=== PATIENT | female | born 1960 | race African-American/Black ===

== ENCOUNTER → 2019-10-09 | Outpatient (CLI) | payer BC ==
[2019-09-04 17:26] VITALS: BP 151/76
[~2019-10-09] MED LIST: AMLO5TAB10 PO; FAMO40TA4 PO; IOHEXOL 180 MG/ML 10 ML VIAL. ONE; LANS30CA PO; LIPITOR80 MG PO; METF10007 PO; METF500T16 PO; METH4TAB2 PO; MULT-735 PO; POTA20TA4 PO; TRIA1TAB3 PO; methylPREDNISolone ACETATE 40 MG/ML VIAL. ONE; methylPREDNISolone ACETATE 80 MG/ML VIAL. ONE
--- NOTE | 2019-10-09 19:55 | PAIN ---
DATE OF SERVICE: 10/09/2019 CHIEF COMPLAINT: Neck and left upper extremity pain. HISTORY OF PRESENT ILLNESS: This is a 58-year-old female who presents with history of pain in the base of the neck and shoulder since about May 2019. The patient reports it started gradually and increased gradually, not a result of any specific injury or action that she is aware of. She has pain in the base of the shoulder radiating to the anterior neck, anterior collar bone, into the shoulder laterally and anteriorly, into the bicep, into the forearm and into the hand on the left side with numbness and tingling in the thumb and first finger specifically. The patient reports it is constant, becoming more noticeable with tingling and numbness, radiating into the left arm, primarily worse at night, but worse with lifting items, has an aching quality with repetitive motions, using computer or driving a car, raising her hand over her head that is on the left side, any repetitive motions or weight lifting or weightbearing with the left arm. The patient reports she has tried exercising and stretching that has not been significantly successful. She has had epidural injections in the past prior to a cervical laminectomy that she had about 10 years ago. The patient has been taking Tylenol at least 2 before bedtime, which does help her sleep. She is taking 2 in the morning now as well, which helps her get through her working day. The patient reports it awakens her from sleep at least once a night. It does not affect her bowel or bladder control, but does affect her ability to walk at times, using left shoulder and is more painful with abduction of the shoulder as well. The patient rates her disability rating from 0-10, 10 being the worst, is a 5 with family home responsibilities, recreation, occupation, sexual behavior and self care, 9 with life support activities, and 7 with social activities. The patient did have an MRI scan of cervical spine on 09/21/2019 showing C4-C5 small to moderate sized left paracentral disk protrusion versus disk osteophyte complex creating concave flattening of the left anterior thecal sac and possible mild extrinsic compression of the exiting left nerve root. Relatively large right C5-C6 paracervical disk protrusion versus disk osteophyte complex. Also, large right lateral C6-C7 paracervical disk protrusion or osteophyte complex as well. The patient reports no loss of motor function, but significant fatigability with left upper extremity with repetitive motions once again and no symptoms on the right. PAST MEDICAL HISTORY: Significant for: 1. Type 2 diabetes. 2. Hypertension. 3. Hyperlipidemia. 4. Irregular heart rhythm. 5. Thyroid nodule. 6. Gastroesophageal reflux. 7. Irritable bowel syndrome. 8. Arthritis. PAST SURGICAL HISTORY: Previous surgeries include: 1. Carpal tunnel release bilaterally. 2. Left ankle surgery. 3. Trigger finger on the left, fourth finger. 5. Cervical spine laminectomy about 10 years ago. 6. Left salpingo-oophorectomy. 7. Appendectomy. 8. Hysterectomy. 9. Sinus surgeries. CURRENT MEDICATIONS: Include: 1. Lansoprazole. 2. Atorvastatin. 3. Amlodipine. 4. Triamterene. 5. Metformin. 6. Multivitamins. 7. Potassium. ALLERGIES: The patient is allergic to SULFA and PENICILLIN DRUGS. FAMILY HISTORY: Significant for diabetes, hypertension, cancers and high cholesterol. SOCIAL HISTORY: The patient drinks alcohol about 1 glass on special occasions only despite several times a year. Does not smoke. Does not use any illegal, illicit or recreational drugs. She is , lives with her spouse. Has one child living at home. Lives locally in [place], [place]. Works as a local banking project/production manager imaging, mostly in the sitting down position during the day of her working hours. REVIEW OF SYSTEMS: Review of systems is positive for those items mentioned in history of present illness. All systems reviewed and otherwise negative. It is complete, full and well documented on the patient's chart. PHYSICAL EXAMINATION: VITAL SIGNS: The patient's blood pressure is 130/47, pulse 78, respirations 16, temperature is 98.2 degrees Fahrenheit, height is 5 feet 4 inches, weight is 183 pounds. GENERAL: The patient is awake, alert, oriented, appropriate, very pleasant demeanor. HEENT: Head shows normocephalic, atraumatic. Extraocular movements are intact and symmetrical. Oral cavity: Mucous membranes moist and pink. Dentition is intact. NECK: Shows anterior throat supple without palpable lymphadenopathy noted. Swallow reflex is symmetrical. CHEST: Shows normal on inspection. Breath sounds are clear bilaterally. HEART: Shows S1, S2 clear. No murmurs auscultated. ABDOMEN: Soft, nontender, nondistended. No palpable organomegaly is noted. No rebound or guarding demonstrated. BACK: Shows spine grossly in the midline. Normal appearing thoracic kyphosis and lumbar lordotic curvature. Cervical lordotic curvature is slightly flattened with well-healed surgical scarring noted in the posterior aspect. Cervical paraspinous muscle shows symmetrical on inspection, with palpation shows some moderate tenderness diffusely bilaterally going diffusely without significant radiation. The patient shows good rotational motion of the cervical spine both laterally as well as extension and flexion with only some minor tenderness with extension, but not with forward flexion. The patient shows good lateral rotation past 45 degrees, right and left without difficulty. EXTREMITIES: The patient's upper extremities show deep tendon reflexes at 2+ in the biceps and triceps tendons. Motor exam is strong with collection administrator strength rated at 4/5 on the left, 5/5 on the right bicep and tricep flexion and 3-4/5 with bicep flexion on the left and 5/5 on the right secondary to pain mostly on the left side. The patient's shoulder shrug is strong and intact without loss of strength on resistance, again with significant pain reported in the base of the neck and into the left trapezius, lateral and anterior deltoid on the left side. This is true with abduction of shoulder to 90 degrees, again without loss of strength on resistance with significant pain on the left shoulder and base of the neck. Peripheral pulses are 2+ radial. No peripheral edema is noted bilaterally. Upper extremities are warm and dry to touch, equal in color and appearance. SKIN: Shows warm and dry. Good turgor. No edema. No sores, rashes or bruising throughout. IMPRESSION: 1. This is a 58-year-old female with approximately 4-5 month history of pain in the base of the neck, left upper extremity in a radicular fashion. 2. MRI scan of cervical spine as noted. 3. Hypertension. 4. Arthritis. 5. Type 2 diabetes. PLAN: Options were discussed with the patient including conservative medical managements, physical therapies and interventional techniques. She would like to pursue interventional techniques as she has done well with these in the past. We discussed a cervical epidural steroid injection using description as well as anatomical models to describe the procedure. Risks were then discussed including, but not limited to bleeding, infection, possibility of epidural hematoma, subsequent neurological compromise, dural puncture, headaches, spinal cord and/or nerve damage, side effects of steroid medication and poor results regarding pain control. The patient understands and wished to proceed. The patient will return to clinic in approximately 2 weeks for followup. She was counseled as to return appointment, activity level and side effects to be aware of. DIAGNOSES: Cervical radiculopathy with cervical degenerative disk disease and cervical post laminectomy syndrome. PROCEDURE: Cervical epidural steroid injection, translaminar approach C6-C7 level using C-arm fluoroscopic guidance under sterile prep and drape using local anesthetic. MEDICATION INJECTED: A total of 120 mg Depo-Medrol plus 5 mL of preservative-free normal saline and 2 mL of contrast. CONDITION AT DISCHARGE: Stable. The patient tolerated the procedure well, had no complications. SERGEI NETTLES MD DR: HELENA/genevieve JOB#: [id number] / [id number]
== END ==
LOC: PNCL 13:29
PROVIDERS: ATTEND Anesthesiology
DX: M50.123 Cervical disc disorder at C6-C7 level with radiculopathy (principal); M96.1 Postlaminectomy syndrome, not elsewhere classified; I10 Essential (primary) hypertension; E78.00 Pure hypercholesterolemia, unspecified; E11.9 Type 2 diabetes mellitus without complications; K21.9 Gastro-esophageal reflux disease without esophagitis; K58.9 Irritable bowel syndrome, unspecified; Z98.890 Other specified postprocedural states; Z90.710 Acquired absence of both cervix and uterus; Z87.39 Personal history of other diseases of the musculoskeletal system and connective tissue; Z90.721 Acquired absence of ovaries, unilateral; Z88.1 Allergy status to other antibiotic agents; Z88.0 Allergy status to penicillin; Z79.84 Long term (current) use of oral hypoglycemic drugs
CPT/HCPCS: 62321; J1030; J1040; Q9965

== ENCOUNTER → 2019-10-22 | Outpatient (CLI) | payer BC ==
[2019-09-04 17:26] VITALS: BP 151/76
[~2019-10-22] MED LIST changes: -IOHEXOL 180 MG/ML 10 ML VIAL. ONE; -methylPREDNISolone ACETATE 40 MG/ML VIAL. ONE; -methylPREDNISolone ACETATE 80 MG/ML VIAL. ONE
--- NOTE | 2019-10-22 09:38 | PAIN ---
DATE OF SERVICE: 10/22/2019 PROGRESS NOTE FOR PAIN CLINIC DIAGNOSES: Cervical radiculopathy with cervical degenerative disk disease and cervical post-laminectomy syndrome. HISTORY OF PRESENT ILLNESS: The patient is a 58-year-old female who returns for followup status post cervical epidural steroid injection x 1 on 10/09/2019. The patient did very well with this, but the pain has returned in the base of the neck and shoulders, mostly in the left arm and shoulder, arm and bicep, into the forearm as well as into the hand and fingers with numbness and tingling. The patient reports it is aching again in the neck and shoulder. The patient reports it is a 9 on a scale of 10 at its worst over the past week, 8 on average and a 5 at its least and is a 7 today. The patient reports still awaken her from sleep about every 4 hours, worse with repetitive motions, left upper extremity, reaching overhead with her left arm or weightbearing with items and reaching at the same time. The patient reports no new motor or sensory deficits or other complaints, but still significant pain in the left upper extremity and neck. No new motor or sensory deficits, no new changes. PHYSICAL EXAMINATION: VITAL SIGNS: The patient's blood pressure 140/89, pulse 67, respirations 16, temperature 98.3 degrees Fahrenheit, weight is 181 pounds. GENERAL: The patient is awake, alert, oriented, appropriate, very pleasant demeanor. HEENT: Head shows normocephalic, atraumatic. Extraocular movements are intact and symmetrical. Oral cavity: Mucous membranes moist and pink. Dentition is intact. NECK: Shows anterior throat supple without palpable lymphadenopathy noted. Swallow reflex symmetrical. CHEST: Shows normal on inspection. Breath sounds clear to auscultation bilaterally. HEART: Shows S1, S2 clear. ABDOMEN: Obese, soft, nontender, nondistended. BACK: Shows spine grossly in the midline. Cervical paraspinous muscle shows symmetrical on inspection. On palpation shows some moderate tenderness diffusely bilaterally going diffusely without significant radiation. The patient does show good rotational motion of cervical spine with some minor pain with extension, but not with forward flexion, right and left lateral rotations performed past 45 degrees, closer to 90 degrees without significant increase in pain. EXTREMITIES: Upper extremities show deep tendon reflexes 2+ in the biceps and triceps tendon. Motor exam is approximately 4 on a scale of 5 on the left with in school suspension coordinator strength 5/5 on the right, biceps shows about 4 on a scale 5 on the left and 5/5 on the right as well. Peripheral pulses are 2+ radial. No peripheral edema is noted bilaterally. PLAN: Options were discussed with the patient. The patient's old chart was reviewed as her current medication regimen updated. Current review of systems updated today as well. We will hold on injection at this time as the patient is running late to work today and she would like to come back in later this week for a second cervical epidural steroid injection. We will make these arrangements to have her return later this week as scheduled. SERGEI NETTLES MD DR: HELENA/genevieve JOB#: [id number] / [id number]
== END | disposition home or self-care (01) ==
LOC: PNCL 08:57
PROVIDERS: ATTEND Anesthesiology
DX: M50.10 Cervical disc disorder with radiculopathy, unspecified cervical region (principal); M96.1 Postlaminectomy syndrome, not elsewhere classified
CPT/HCPCS: G0463

== ENCOUNTER → 2019-11-23 | Outpatient (CLI) | payer BC ==
[2019-09-04 17:26] VITALS: BP 151/76
[~2019-11-23] MED LIST changes: +IOHEXOL 180 MG/ML 10 ML VIAL. ONE; +methylPREDNISolone ACETATE 40 MG/ML VIAL. ONE; +methylPREDNISolone ACETATE 80 MG/ML VIAL. ONE
--- NOTE | 2019-11-23 09:25 | PAIN ---
DATE OF SERVICE: 11/23/2019 PROGRESS NOTE FOR PAIN CLINIC DIAGNOSES: Cervical radiculopathy with cervical degenerative disk disease and cervical post-laminectomy syndrome. HISTORY OF PRESENT ILLNESS: The patient is a 58-year-old female who returns for followup status post cervical epidural steroid injection x 1 with about a 40% improvement overall. The patient reports still significant pain in the base of neck and left upper extremity. The patient reports it is tingling and aching. We had rescheduled after her last visit as she had some other appointments that day and needed to be fairly active and was working and had to return when she does not have to work later today. She returned today and would like to proceed. The patient reports pain is still in the base of the neck, left upper extremity, anterior biceps, into the forearm, into the hand and wrist as well with tingling, numbness, aching and shooting pain in the left arm with tingling sensation in the hand as well. The patient reports it is on and off and has been disturbing her sleep fairly significantly over the past week or so. The patient rates her pain as a 10 on a scale of 10 at its worse the past week, 8 on average, 5 at its least and is a 5 today. The patient reports no new motor or sensory deficits, no new changes. PHYSICAL EXAMINATION: VITAL SIGNS: The patient's blood pressure is 136/76, pulse 72, respirations are 18, temperature 98.2 degrees Fahrenheit, height is 5 feet 5 inches, weight is 153 pounds. GENERAL: The patient is awake, alert, oriented, appropriate, very pleasant demeanor. HEENT: Shows normocephalic, atraumatic. Extraocular movements are intact and symmetrical. Oral cavity: Mucous membranes moist and pink. Dentition is intact. NECK: Shows anterior throat supple without palpable lymphadenopathy noted. Swallow reflex symmetrical. CHEST: Shows normal on inspection. Breath sounds are clear bilaterally. HEART: Shows S1, S2 clear. No murmurs auscultated. ABDOMEN: Soft, nontender, nondistended. No palpable organomegaly is noted. There is no rebound or guarding demonstrated. BACK: Shows spine grossly in the midline. Slight flattening of cervical lordotic curvature with well-healed surgical scar noted posteriorly. Cervical paraspinous musculature shows symmetrical on inspection, with palpation some moderate tenderness diffusely in the middle and lower distribution of the cervical paraspinous muscles and into the superior medial trapezius, slightly more tender on the left than the right, but present bilaterally, but without asymmetry, without atrophy, and without trigger points. The patient shows good rotational motion of cervical spine, both laterally as well as extension and flexion without significant increase in pain. EXTREMITIES: Upper extremities show deep tendon reflexes 2+ in the biceps, triceps tendons. Motor exam is approximately 4 on a scale of 5 with left roll cleaner strength and 5/5 on the right. Bicep and tricep flexion likewise 4/5 left, 5/5 on the right. Peripheral pulses are 2+ radial. No peripheral edema is noted bilaterally. Options were discussed with the patient. The patient's old chart was reviewed as her current medication regimen updated. Current review of systems updated today as well. We will proceed with a second in a series of cervical epidural steroid injection today with fluoroscopic guidance. Risks were again discussed including, but not limited to bleeding, infection, possibility of epidural hematoma, subsequent neurological compromise, dural puncture, headaches, spinal cord and/or nerve damage, side effects of steroid medication and poor results regarding pain control. The patient understands and wished to proceed. The patient will return to clinic in approximately 2 weeks for followup, was counseled on return appointment, activity level and side effects to be aware of. DIAGNOSES: Cervical radiculopathy with cervical degenerative disk disease and cervical post-laminectomy syndrome. PROCEDURE: Cervical epidural steroid injection, translaminar approach C6-C7 level using C-arm fluoroscopic guidance under sterile prep and drape using local anesthetic. MEDICATION INJECTED: A total of 120 mg Depo-Medrol plus 5 mL of preservative-free normal saline and 2 mL of contrast. CONDITION AT DISCHARGE: Stable. The patient tolerated the procedure well, had no complications. SERGEI NETTLES MD DR: HELENA/genevieve JOB#: [id number] / [id number]
== END | disposition home or self-care (01) ==
LOC: PNCL 07:44
PROVIDERS: ATTEND Anesthesiology
DX: M50.123 Cervical disc disorder at C6-C7 level with radiculopathy (principal); M96.1 Postlaminectomy syndrome, not elsewhere classified; Z98.890 Other specified postprocedural states; Z88.0 Allergy status to penicillin; Z88.1 Allergy status to other antibiotic agents; Z88.8 Allergy status to other drugs, medicaments and biological substances
CPT/HCPCS: 62321; J1030; J1040; Q9965

== ENCOUNTER → 2019-12-07 | Outpatient (CLI) | payer BC ==
[2019-09-04 17:26] VITALS: BP 151/76
[~2019-12-07] MED LIST changes: -IOHEXOL 180 MG/ML 10 ML VIAL. ONE; -methylPREDNISolone ACETATE 40 MG/ML VIAL. ONE; -methylPREDNISolone ACETATE 80 MG/ML VIAL. ONE
--- NOTE | 2019-12-07 08:33 | PAIN ---
DATE OF SERVICE: 12/07/2019 PROGRESS NOTE FOR PAIN CLINIC DIAGNOSIS: Cervical radiculopathy with cervical degenerative disk disease and cervical post-laminectomy syndrome. HISTORY OF PRESENT ILLNESS: The patient is a 58-year-old female, who returns for followup status post cervical epidural steroid injections x 2. The patient reports near 100% improvement for about a week, week and a half to 2 weeks. The patient reports that the pain returns in the base of the neck and the left shoulder and upper extremity. The patient rates it as an 8 on a scale of 10 at its worst over the past week, 5 on an average, 4 at its least and is a 4 today. The patient reports tingling, aching and sharp in the base of the neck and left shoulder, left upper extremity, radiating, worse with activity, repetitive motions, reaching over her head or with weightbearing on the left arm. The patient reports initially she was doing much better, had much better time sleeping, was doing work activities, household activities, traveling with greater ease and comfort for the first 2 weeks and the pain returned, not quite to baseline, but close. The patient reports it is becoming more constant ache, more headaches involved with the pain as well and difficulty sleeping. The patient reports no new motor or sensory deficits, no new bowel or bladder incontinence or other complaints. The patient describes the pain as aching, sharp and tingling in the left arm. PHYSICAL EXAMINATION: VITAL SIGNS: The patient's blood pressure 128/76, pulse 73, respirations 18, temperature 98.3 degrees Fahrenheit, weight is 181 pounds. GENERAL: The patient is awake, alert, oriented, appropriate, is a very pleasant demeanor. HEENT: Shows normocephalic, atraumatic. Extraocular movements are intact and symmetrical. Oral cavity: Mucous membranes moist and pink; dentition is intact. NECK: Shows anterior throat supple. Swallow reflex symmetrical. CHEST: Shows normal on inspection. Breath sounds are clear. No rales, rhonchi or wheezes auscultated. HEART: Shows S1, S2 clear. No murmurs auscultated. ABDOMEN: Soft, nontender and nondistended. No palpable organomegaly is noted. No rebound or guarding demonstrated. BACK: Shows spine grossly in the midline. Cervical paraspinous musculature shows symmetrical on inspection, with palpation shows some moderate tenderness diffusely in the middle and inferior aspect of the cervical paraspinous muscles, but it is symmetrical without evidence of atrophy or hypertrophy, no trigger points, no radiation of pain. The patient has good rotational motion of cervical spine both laterally greater than 45 degrees, closer to 90 degrees, right and left, as well as full extension and full forward flexion without significant increase in pain. EXTREMITIES: Upper extremities show deep tendon reflexes are 2+ in the biceps and triceps tendons. Motor exam is approximately 4 on a scale of 5 on the left with molder helper strength and 5/5 on the right. Peripheral pulses are 2+ radial. No peripheral edema is noted bilaterally. Options were discussed with the patient. The patient's old chart was reviewed as her current medication regimen updated. Current review of systems updated today as well. We will hold on any further injections per the patient's choice. She would like to follow up with her neurosurgeon, Dr. Cameron Soriano, and we will have her follow up with him with recent MRI scan results to be reviewed with the neurosurgeon to see if there may be a surgical alternative. If not, we will return for third cervical epidural steroid injection. SERGEI NETTLES MD DR: HELENA/genevieve JOB#: [id number] / [id number]
== END | disposition home or self-care (01) ==
LOC: PNCL 07:43
PROVIDERS: ATTEND Anesthesiology
DX: M96.1 Postlaminectomy syndrome, not elsewhere classified (principal); M50.10 Cervical disc disorder with radiculopathy, unspecified cervical region
CPT/HCPCS: G0463

== ENCOUNTER 2020-04-26 20:20 | Emergency (ER) | payer BC ==
[~2020-04-26] VITALS: Ht 167.6 cm; Wt 65.0 kg
[~2020-04-26 20:20] MED LIST changes: +AMLO-186 PO; -AMLO5TAB10 PO
[2020-04-26 23:42] LABS: BILIRUBIN,URINE NEGATIVE (NEG); CLARITY,URINE CLEAR; COLOR,URINE YELLOW; NITRITE,URINE NEGATIVE (NEG); PROTEIN,URINE NEGATIVE (NEG-TRACE)
--- NOTE | 2020-04-26 23:52 | PHYS DOC ---
Past Medical History Past Medical History: Diabetes-Type II, High Cholesterol, Hypertension Past Surgical History: Appendectomy, Other Additional Past Surgical Histo: NECK, CARPAL TUNNEL, Smoking Status: Never Smoker Alcohol Use: None General Adult EDM: Chief Complaint: FLANK PAIN HPI: HPI: Patient is a 59 year old female presents with a chief complaint of right flank pain. Patient states flank pains started around 11 AM this morning. Patient states pain has been constant since onset. She states pain radiates from right flank to right abdomen. Patient states she has associated nausea but has not vomited. She denies any urinary issues. She states she has never had similar symptoms in the past. Patient's past surgical history include an appendectomy. Review of Systems: Review of Systems: Constitutional: Denies fever or chills. [] Eyes: Denies change in visual acuity. [] HENT: Denies nasal congestion or sore throat. [] Respiratory: Denies cough or shortness of breath. [] Cardiovascular: Denies chest pain or edema. [] GI: Positive abdominal pain positive nausea no vomiting no diarrhea : Denies dysuria. [] Positive flank pain Musculoskeletal: Denies back pain or joint pain. [] Integument: Denies rash. [] Neurologic: Denies headache, focal weakness or sensory changes. [] Endocrine: Denies polyuria or polydipsia. [] Lymphatic: Denies swollen glands. [] Psychiatric: Denies depression or anxiety. [] Heart Score: Risk Factors: Risk Factors: DM, Current or recent (<one month) smoker, HTN, HLP, family history of CAD, obesity. Risk Scores: Score 0 - 3: 2.5% MACE over next 6 weeks - Discharge Home Score 4 - 6: 20.3% MACE over next 6 weeks - Admit for Clinical Observation Score 7 - 10: 72.7% MACE over next 6 weeks - Early Invasive Strategies Allergies: Allergies: Allergies Coded Allergies Type Severity Reaction Last Updated Verified Penicillins Allergy Intermediate 02/02/18 Yes Sulfa (Sulfonamide Antibiotics) Allergy Intermediate 01/31/18 Yes fluconazole Allergy Intermediate 01/31/18 Yes Physical Exam: PE: Constitutional: Well developed, well nourished, no acute distress, non-toxic appearance. [] HENT: Normocephalic, atraumatic, bilateral external ears normal, oropharynx moist, no oral exudates, nose normal. [] Eyes: PERRLA, EOMI, conjunctiva normal, no discharge. [] Neck: Normal range of motion, no tenderness, supple, no stridor. [] Cardiovascular:Heart rate regular rhythm, no murmur [] Lungs & Thorax: Bilateral breath sounds clear to auscultation [] Abdomen: Bowel sounds normal, soft, no tenderness, no masses, no pulsatile masses. [] Skin: Warm, dry, no erythema, no rash. [] Back: No tenderness, no CVA tenderness. [] Extremities: No tenderness, no cyanosis, no clubbing, ROM intact, no edema. [] Neurologic: Alert and oriented X 3, normal motor function, normal sensory function, no focal deficits noted. [] Psychologic: Affect normal, judgement normal, mood normal. [] Current Patient Data: Vital Signs: Vital Signs Date Time Temp Pulse Resp B/P (MAP) Pulse Ox O2 Delivery O2 Flow Rate FiO2 04/26/20 20:52 98.0 73 18 119/85 (96) 97 Room Air 98.0 EKG: EKG: EKG performed at 0056 sinus rhythm rate of [address] elevation no ST depression no acute AK [] Radiology/Procedures: Radiology/Procedures: [] Impression: HISTORY: Right flank pain. CT scan the abdomen and pelvis was done without contrast. Lung bases are clear. There is no effusion. 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 There is mild spondylolisthesis at L4-5 with mild spinal stenosis and lateral recess stenosis. There is no calcified gallstone. A liver lesion is not identified. Spleen and adrenal glands are normal. Pancreas is unremarkable. There is no mass or hydronephrosis or intrarenal calculus in the kidneys. A ureteral calculus is not identified. There are multiple phleboliths in the pelvis. Bladder appears unremarkable. Appendix is not identified. Patient's had a hysterectomy. Pelvic mass is not evident. There is no free fluid or ascites. Appendix is not identified but I do not see evidence that would suggest an acute appendicitis IMPRESSION: 1. No renal or ureteral calculus noted. 2. No abdominal mass noted. 3. Mild degenerative spondylolisthesis at L4-5 with mild spinal stenosis. Course & Med Decision Making: Course & Med Decision Making Pertinent Labs and Imaging studies reviewed. (See chart for details) [] Patient being worked up for right flank pain. Initial work-up will include UA CT abdomen and pelvis CBC CMP. Patient declined pain medication and nausea medication. -- All results reviewed and discussed with patient and family.--EKG no STEMI troponin within normal limits No acute abnormalities of patients CT abd/pel. Patients labs within normal limits. Patient does states pain is still present-- she is agreeable to pain medications. Will treat with toradol-- 15mg IVP. Will Rx norco and zofran. Patient to follow up with PCP. Agnes Disclaimer: Agnes Disclaimer: This electronic medical record was generated, in whole or in part, using a voice recognition dictation system. Departure Departure Impression: Primary Impression: Flank pain Additional Impression: Abdominal pain Disposition: 01 HOME SELF CARE/HOMELESS Condition: STABLE Referrals: ZION LUND MD (PCP) Patient Instructions: Flank Pain Scripts Tramadol Hcl (ULTRAM) 50 Mg Tablet 1 TAB PO PRN Q6HRS PRN for pain MDD 4 Tablet(s) for 7 Days, #28 TAB 0 Refills Prov: DUANE GIBSON I DO 04/27/20 Tramadol Hcl (ULTRAM) 50 Mg Tablet 1 TAB PO PRN Q6HRS PRN for pain MDD 4 Tablet(s) for 7 Days, #28 TAB 0 Refills Prov: DUANE GIBSON I DO 04/27/20 DUANE GIBSON I DO Apr 26, 2020 23:52
[2020-04-26 23:59] LABS: BACTERIA,URINE MODERATE /HPF (0-FEW); RBC,URINE OCC /HPF (0-2); WBC,URINE OCC /HPF (0-4)
[2020-04-27 00:02] LABS: BASO # 0.1 x10^3/uL (0.0-0.2); BASO % 1 % (0-3); EOS # 0.1 x10^3/uL (0.0-0.7); EOS % 1 % (0-3); HEMATOCRIT 41.1 % (36.0-47.0); HEMOGLOBIN 13.3 g/dL (12.0-15.5); LYMPH # 2.8 x10^3/uL (1.0-4.8); LYMPH % 25 % (24-48); MEAN CORPUSCULAR HEMOGLOBIN 24 pg (25-35); MEAN CORPUSCULAR HGB CONC 33 g/dL (31-37); MEAN CORPUSCULAR VOLUME 73 fL (79-100); MONO # 0.8 x10^3/uL (0.0-1.1); MONO % 8 % (0-9); NEUT # 7.3 x10^3/uL (1.8-7.7); NEUT % 65 % (31-73); PLATELET COUNT 344 x10^3/uL (140-400); RED BLOOD COUNT 5.65 x10^6/uL (3.50-5.40); WHITE BLOOD COUNT 11.1 x10^3/uL (4.0-11.0)
[2020-04-27 00:03] LABS: CALCIUM 9.6 mg/dL (8.5-10.1); CREATININE 1.1 mg/dL (0.6-1.0); GFR 61.1; POTASSIUM 3.7 mmol/L (3.5-5.1)
[2020-04-27 00:09] LABS: TOTAL BILIRUBIN 0.3 mg/dL (0.2-1.0); TOTAL PROTEIN 8.2 g/dL (6.4-8.2)
--- NOTE | 2020-04-27 00:29 | RAD ---
CT abdomen pelvis without contrast. HISTORY: Right flank pain. CT scan the abdomen and pelvis was done without contrast. Lung bases are clear. There is no effusion. 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 There is mild spondylolisthesis at L4-5 with mild spinal stenosis and lateral recess stenosis. There is no calcified gallstone. A liver lesion is not identified. Spleen and adrenal glands are normal. Pancreas is unremarkable. There is no mass or hydronephrosis or intrarenal calculus in the kidneys. A ureteral calculus is not identified. There are multiple phleboliths in the pelvis. Bladder appears unremarkable. Appendix is not identified. Patient's had a hysterectomy. Pelvic mass is not evident. There is no free fluid or ascites. Appendix is not identified but I do not see evidence that would suggest an acute appendicitis IMPRESSION: 1. No renal or ureteral calculus noted. 2. No abdominal mass noted. 3. Mild degenerative spondylolisthesis at L4-5 with mild spinal stenosis. PQRS Compliance Statement: One or more of the following individualized dose reduction techniques were utilized for this examination: 1. Automated exposure control 2. Adjustment of the mA and/or kV according to patient size 3. Use of iterative reconstruction technique Electronically signed by: Javi Hatch MD (04/27/2020 12:26 AM) [id number]
[2020-04-27] MEDS ORDERED: TRAM-48 PO ×2 (01:06→01:07)
[2020-04-27 01:21] VITALS: BP 130/64
[2020-04-27] MEDS ORDERED: fentaNYL PF VIAL 100 MCG/2 ML VIAL IVP ONE (01:30)
== END 2020-04-27 01:40 | disposition home or self-care (01) ==
LOC: ER 20:20
DX: R10.9 Unspecified abdominal pain (principal); R11.0 Nausea; E11.9 Type 2 diabetes mellitus without complications; E78.00 Pure hypercholesterolemia, unspecified; I10 Essential (primary) hypertension; Z90.89 Acquired absence of other organs; Z98.890 Other specified postprocedural states; Z88.0 Allergy status to penicillin; Z88.2 Allergy status to sulfonamides; Z88.8 Allergy status to other drugs, medicaments and biological substances
CPT/HCPCS: 36415; 74176; 80053; 81001; 84484; 85025; 87086; 96374; 99285; J3010